=== PATIENT | male | born 1940 | race Caucasian/White ===

== ENCOUNTER → 2016-06-05 | Outpatient (CLI) | payer MEDICARE, OTHER ==
--- NOTE | 2016-06-05 11:53 | Diagnostic Imaging Report ---
PROCEDURE: CT chest without contrast. TECHNIQUE: Multiple contiguous axial images were obtained through the chest without the use of intravenous contrast. INDICATION: Solitary lung nodule. FINDINGS: Multiple calcified granulomas are seen mostly involving the right lung, the right hilum and the mediastinum compatible with prior granulomatous process. There is no suspicious pulmonary nodule, mass or significant consolidation. There is no pleural or pericardial effusion. The heart size is normal. The thoracic aorta is normal in caliber. No axillary lymphadenopathy. The sections in the upper abdomen demonstrate multiple splenic calcified granulomas. The osseous structures demonstrate minimal degenerative changes. IMPRESSION: Evidence of prior granulomatous infection. No acute process. Dictated by: Dictated on workstation # [id number]
== END ==
LOC: RAD 11:18
PROVIDERS: ATTEND Internal Medicine Critical Care Medicine
DX: R91.1 Solitary pulmonary nodule (principal)
CPT/HCPCS: 71250